=== PATIENT | male | born 1975 | race Caucasian/White ===

== ENCOUNTER 2020-04-25 10:59 | Emergency (ER) | payer MEDICAID ==
[2020-04-25 11:10] VITALS: BP 149/99
[2020-04-25] MEDS ORDERED: TETANUS/DIPHTHERIA/PERTUSSIS 0.5 ML SYRINGE IM ONE (11:23)
[2020-04-25] MEDS ORDERED: LIDOCAINE 2%-EPI 1:100000 20 ML MDV SUBQ STA (11:23)
[2020-04-25] MEDS ORDERED: SULFAMETH/TRIMETH DS 800/160 MG TABLET PO STA (11:51)
[2020-04-25] MEDS ORDERED: cephALEXin 250 MG CAPSULE PO STA (11:51)
--- NOTE | 2020-04-25 11:53 | ED Physician Documentation ---
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 He states that he noticed redness and swelling to the left lower extremity over the past few days. Increasing today. Worse with palpation, better with rest. Unknown last tetanus. Review of Systems Constitutional: denies: Fever Respiratory: denies: Cough GI: denies: Abdominal Pain, Nausea, Vomiting, Diarrhea : denies: Dysuria Skin: denies: Rash Musculoskeletal: denies: Neck pain, Back pain Neurologic: denies: Headache PD PAST MEDICAL HISTORY - Past Medical History Past Medical History: No - Present Medications Home Medications: Ambulatory Orders Medication Instructions Recorded Confirmed Cephalexin [Keflex] 500 mg PO Q6H #28 capsule 04/25/20 Sulfamethox/Trimeth 800/160 1 each PO BID #14 tablet 04/25/20 [Bactrim Ds 800/160] - Allergies Allergies/Adverse Reactions: Allergies Allergy/AdvReac Type Severity Reaction Status Date / Time No Known Drug Allergies Allergy Verified 04/25/20 11:10 - Social History Does the pt smoke?: No Smoking Status: Never smoker - Immunizations Immunizations are current?: No Immunizations: TDAP >10years/unknown PD ED PE NORMAL - Vitals Vital signs reviewed: Yes - General General: Alert and oriented X 3, No acute distress - HEENT HEENT: Moist mucous membranes - Neck Neck: Supple, no meningeal sign - Respiratory Respiratory: No respiratory distress - Derm Derm: Warm and dry - Extremities Extremities: Other (2 x 2 cm abscess to the lateral aspect of the left knee. Minimal surrounding erythema. There is a second open sore approximately midway down the tibia that has 2 cm of surrounding cellulitis as well. No drainage.) - Neuro Neuro: Alert and oriented X 3 Results - Vitals Vitals: Vital Signs - 24 hr 04/25/20 11:08 Temperature 36.8 C Heart Rate 108 H Respiratory 16 Rate Blood Pressure 149/99 H O2 Saturation 100 Oxygen O2 Source Room air Procedures - Abscess I&D (location) Left knee Preparation: Chlorhexadine, Lidocaine 2 %, With epi Incision: Incised with scalpel, Purulent drainage, Culture obtained Other: Pt tolerated well, Dressing applied, Antibiotic prescribed PD MEDICAL DECISION MAKING - ED course Complexity details: considered differential, d/w patient ED course: Patient with a left knee abscess and cellulitis. No evidence of septic joint. We will place on antibiotics for home and have him follow-up with his doctor for further care and a wound check. Patient and family counseled regarding signs and symptoms for which I believe and urgent re-evaluation would be necessary. Patient with good understanding of and agreement to plan and is comfortable going home at this time This document was made in part using voice recognition software. While efforts are made to proofread this document, sound alike and grammatical errors may occur. Departure - Departure Disposition: 01 Home, Self Care Clinical Impression: Abscess Condition: Good Instructions: ED Abscess IandD Follow-Up: your,doctor in 3 days for wound check [Other] Prescriptions: Sulfamethox/Trimeth 800/160 [Bactrim Ds 800/160] 1 each PO BID #14 tablet Cephalexin [Keflex] 500 mg PO Q6H #28 capsule Comments: Take all antibiotics until gone. Return if you worsen. Follow-up with your doctor for further care and a wound check within 3 days.
== END 2020-04-25 12:02 | disposition home or self-care (01) ==
LOC: ED 10:59
DX: L02.416 Cutaneous abscess of left lower limb (principal); L03.116 Cellulitis of left lower limb
CPT/HCPCS: 10060; 87070; 87181; 87205; 90471; 90715; 99283; 99284; A9270

== ENCOUNTER 2021-08-18 11:09 | Emergency (ER) | payer MEDICAID ==
[2021-08-18 11:17] VITALS: BP 169/87
--- NOTE | 2021-08-18 11:21 | ED Physician Documentation ---
PD HPI HEENT - Stated complaint Stated Complaint: TOOTH PX - Chief complaint Chief Complaint: General - History obtained from History obtained from: Patient - History of Present Illness Timing - onset: How many days ago (3) Timing - duration: Days (3) Timing - details: Abrupt onset, Still present Location: Tooth (has had pain and swelling buccal side gums lower front teeth for 3 days with sloughing of some tissue this morning.) Associated symptoms: No: Fever, Congestion, Rhinorrhea, Swollen nodes, Cough Similar symptoms before: Has not had sx before (poor dentition but not gingival issue like this.) Recently seen: Not recently seen Review of Systems Constitutional: denies: Fever, Chills Nose: denies: Rhinorrhea / runny nose, Congestion Throat: denies: Sore throat Respiratory: denies: Cough PD PAST MEDICAL HISTORY - Past Medical History Past Medical History: Yes Cardiovascular: Hypertension Respiratory: None Neuro: Seizure disorder Endocrine/Autoimmune: None GI: None : Renal insuffiency, Other HEENT: None Psych: None Musculoskeletal: None Derm: None - Past Surgical History Past Surgical History: No - Present Medications Home Medications: Ambulatory Orders Medication Instructions Recorded Confirmed Chlorhexidine Gluconate [Peridex] 15 ml MM TID #118 ml 08/18/21 Clindamycin [Cleocin] 300 mg PO QID 7 Days #28 cap 08/18/21 HYDROcod/ACETAM 5/325 [[place] 5/325] 1 ea PO Q6H PRN #14 tablet 08/18/21 Naproxen 250 mg PO TID 7 Days #20 tablet 08/18/21 - Allergies Allergies/Adverse Reactions: Allergies Allergy/AdvReac Type Severity Reaction Status Date / Time No Known Drug Allergies Allergy Verified 08/18/21 11:14 - Living Situation Living Arrangement: reports: At home - Social History Does the pt smoke?: Yes Smoking Status: Current every day smoker Does the pt drink ETOH?: Yes ETOH Use: Liquor Does the pt have substance abuse?: No - Immunizations Immunizations are current?: No Immunizations: Other immun current PD ED PE NORMAL - Vitals Vital signs reviewed: Yes - General General: Alert and oriented X 3, Well developed/nourished, Other (appears in pain from mouth) - HEENT HEENT: No: Dentition benign (multiple caries and decay/enamel loss. the buccal gingiva lower anterior frontal teeth shows gingival inflammation/redness and there is focal erosion of gum exposing base/roots of those 2 teeth. ) - Neck Neck: Supple, no meningeal sign, No adenopathy - Cardiac Cardiac: RRR, No murmur - Respiratory Respiratory: Clear bilaterally - Derm Derm: Normal color, Warm and dry Results - Vitals Vitals: Oxygen O2 Source Room air PD MEDICAL DECISION MAKING - ED course Complexity details: considered differential (Appears to be acute ulcerative gingivitis. Per up-to-date reference, will treat with clindamycin and martín-Dex. We will have him follow-up with oral surgery this coming week to call tomorrow for an appointment. He likely will need gingival graft over the area. ), d/w patient Departure - Departure Disposition: 01 Home, Self Care Clinical Impression: Acute ulcerative gingivitis Condition: Stable Record reviewed to determine appropriate education?: Yes Follow-Up: Ashkan Coe DDS [Provider Admit Priv/Credential] - Prescriptions: Clindamycin [Cleocin] 300 mg PO QID 7 Days #28 cap Naproxen 250 mg PO TID 7 Days #20 tablet HYDROcod/ACETAM 5/325 [[place] 5/325] 1 ea PO Q6H PRN #14 tablet PRN Reason: Pain Chlorhexidine Gluconate [Peridex] 15 ml MM TID #118 ml Comments: Rinse with regular mouthwash or at least regular water 3-4 times daily followed then by Peridex (chlorhexidine) oral antiseptic and be sure to swish around the gumline and around the teeth. You can then spit out or swallow. Clindamycin antibiotic 4 times daily for the next week. Naproxen anti-inflammatory 3 times daily with food. You going to take the clindamycin with food as well so as to not bother your stomach. Add Tylenol or hydrocodone as needed for pain in addition. Follow-up with dental clinic or more preferable would be oral surgery. I gave reference number for Dr. Coe who is an oral surgeon in [place]. Call their office tomorrow morning for a follow-up appointment to this visit. I transmitted your prescriptions to [facility] pharmacy in [place]. I am prescribing a short course of narcotic pain medication for you. These are potentially dangerous and addictive medications that should be used carefully. These medications may constipate you. Take an dvii-kih-nanfrid stool softener such as docusate twice daily with plenty of water while taking these medicatio ns. If you go 24 hours without a bowel movement, take ozbq-gvt-hjmpftu MiraLAX, per package instructions. Do not drink or drive while taking these medications. If you received narcotic or sedating medications while in the emergency department do not drive for 24 hours. Store this medication in a safe, secure place and out of reach of children. It is a violation of federal law to give or sell this medication to another person or to use in a manner other than prescribed. The ED will not refill narcotic prescriptions, including prescriptions lost or stolen. You can dispose of unwanted medications at the [facility]'s office or at several pharmacies such as [facility]. Discharge Date/Time: 08/18/21 12:00
[2021-08-18] MEDS ORDERED: HYDROcod/ACETAM 5/325 MG TABLET PO STA (11:38)
[2021-08-18] MEDS ORDERED: NAPROXEN 250 MG TABLET PO STA (11:38)
[2021-08-18] MEDS ORDERED: CLINDAMYCIN 150 MG CAPSULE PO STA (11:38)
== END 2021-08-18 12:00 | disposition home or self-care (01) ==
LOC: ED 11:09
DX: K05.00 Acute gingivitis, plaque induced (principal); F17.200 Nicotine dependence, unspecified, uncomplicated
CPT/HCPCS: 99283; 99284; A9270

== ENCOUNTER 2022-04-22 10:50 | Emergency (ER) | payer MEDICAID ==
--- NOTE | 2022-04-22 11:28 | XRAY Report ---
PROCEDURE: Shoulder 3 View LT INDICATIONS: pain TECHNIQUE: 3 views of the shoulder were acquired. COMPARISON: None. FINDINGS: Bones: No fractures or dislocations. No suspicious bony lesions. Visualized ribs appear intact. Soft tissues: No suspicious soft tissue calcifications. IMPRESSION: No evidence acute bony abnormality of the left shoulder. If clinical suspicion and/or symptoms persist, further assessment with repeat plain films or advanced imaging (e.g., CT, MRI, or bone scan) may be helpful for further assessment. Reviewed by: Vikram Almanza MD on 04/22/2022 11:27 AM PDT Approved by: Vikram Almanza MD on 04/22/2022 11:27 AM PDT Station ID: [id number]
--- NOTE | 2022-04-22 12:23 | ED Physician Documentation ---
History of Present Illness - Stated complaint Stated Complaint: SHOULDER PX/NECK PX - Chief complaint Chief Complaint: Trauma Ext - History obtained from History obtained from: Patient - Additonal information Additional information: 46-year-old gentleman with history of nephrotic syndrome presents with 2 complaints, the first being 1 month worth of left shoulder pain with numbness in the left arm. Pain is not too severe but does keep him from sleeping at night. Secondly over the last 5 days or so he developed nasal congestion and ear pain especially on the left with fatigue but no fevers or cough. That is improving without specific intervention. Last but not least in passing he mentions that he feels all of his skin is tight and sensitive. It has been years since he has had his renal function checked. Review of Systems Constitutional: reports: Fatigue. denies: Fever, Chills Ears: reports: Ear pain Nose: reports: Rhinorrhea / runny nose, Congestion PD PAST MEDICAL HISTORY - Past Medical History Cardiovascular: Hypertension Respiratory: None Neuro: Seizure disorder Endocrine/Autoimmune: None GI: None : Renal insuffiency, Other HEENT: None Psych: None Musculoskeletal: None Derm: None - Past Surgical History Past Surgical History: No - Present Medications Home Medications: Ambulatory Orders Medication Instructions Recorded Confirmed Chlorhexidine Gluconate [Peridex] 15 ml MM TID #118 ml 08/18/21 Clindamycin [Cleocin] 300 mg PO QID 7 Days #28 cap 08/18/21 HYDROcod/ACETAM 5/325 [[place] 5/325] 1 ea PO Q6H PRN #14 tablet 08/18/21 Naproxen 250 mg PO TID 7 Days #20 tablet 08/18/21 HYDROcod/ACETAM 5/325 [[place] 5/325] 1 - 2 tab PO Q6H PRN #15 tablet 04/22/22 predniSONE [Deltasone] 20 mg PO [id number] #21 tab 04/22/22 - Allergies Allergies/Adverse Reactions: Allergies Allergy/AdvReac Type Severity Reaction Status Date / Time No Known Drug Allergies Allergy Verified 04/22/22 11:02 - Social History Does the pt smoke?: Yes Smoking Status: Current every day smoker Does the pt drink ETOH?: Yes Does the pt have substance abuse?: No - Immunizations Immunizations are current?: No Immunizations: Other immun current PD ED PE NORMAL - Vitals Vital signs reviewed: Yes - General General: Alert and oriented X 3, No acute distress - HEENT HEENT: Other (Serous otitis on the left, no sinus tenderness, oropharynx normal.) - Neck Neck: Supple, no meningeal sign, No bony TTP - Cardiac Cardiac: RRR, No murmur - Respiratory Respiratory: No respiratory distress, Clear bilaterally - Abdomen Abdomen: Non tender - Back Back: No CVA TTP, No spinal TTP - Derm Derm: Normal color, Warm and dry - Extremities Extremities: Other (Full range of motion of the left shoulder which appears relatively painless. No midline spinal tenderness. 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, thumb extension, interosseous strength, and flexion and extension at the wrist.) - Neuro Neuro: Alert and oriented X 3, No sensory deficit, Normal speech Eye Opening: Spontaneous Motor: Obeys Commands Verbal: Oriented GCS Score: 15 Results - Vitals Vitals: Vital Signs - 24 hr 04/22/22 04/22/22 10:58 12:53 Temperature 36.3 C L Heart Rate 101 H 81 Respiratory 18 14 Rate Blood Pressure 142/78 H 133/85 H O2 Saturation 99 99 Oxygen O2 Source Room air - Labs Labs: Laboratory Tests 04/22/22 12:27 Sodium 142 Potassium 4.3 Chloride 103 Carbon Dioxide 29 Anion Gap 10.0 BUN 17 Creatinine 0.9 Estimated GFR (MDRD) 92 Glucose 122 H Calcium 9.5 - Rads (name of study) Three-view x-ray of the left shoulder is unremarkable. Radiology: EMP read contemporaneously PD MEDICAL DECISION MAKING - ED course ED course: 46-year-old gentleman with symptoms of left arm pain and shoulder pain but with neuropathy in areas of that arm. The only finding on exam is 1 area of partial numbness, strength is intact. This is most consistent with a mild cervical radiculopathy and he was advised as such. He had an ancillary complaints of URI, but that seems to be getting better so conservative management was advised, and finally he felt like his skin was tight. Given his history of nephrotic syndrome a BMP was checked despite no findings of anasarca and his renal function is excellent. Departure - Departure Disposition: 01 Home, Self Care Clinical Impression: Viral syndrome, Cervical radiculopathy Condition: Good Record reviewed to determine appropriate education?: Yes Instructions: ED Cervical Radiculopathy Follow-Up: Neda Harry ARNP [Provider Admit Priv/Credential] - Prescriptions: predniSONE [Deltasone] 20 mg PO [id number] #21 tab HYDROcod/ACETAM 5/325 [[place] 5/325] 1 - 2 tab PO Q6H PRN #15 tablet PRN Reason: Pain Comments: I sent your prescriptions electronically to [facility] in [place]. We did check labs today and your renal function is excellent, your creatinine is 0.9 and your GFR is 92 both normal. Your blood sugar was borderline high at 122 and should be monitored by your primary care physician. On-call for ED follow-up this for next week is nurse practitioner Kamryn who's number is on this form. Call her office today for an appointment. Return for new or worsening symptoms. I am prescribing a short course of narcotic pain medication for you. These are potentially dangerous and addictive medications that should be used carefully. These medications may constipate you. Take an foxl-rqj-trnwbwy stool softener (docusate) twice daily with plenty of water while taking these medications. If you go 24 hours without a bowel movement, take dacw-uve-vyjckla miralax, per package instructions. Do not drink or drive while taking these medications. If you received narcotic or sedating medications while in the emergency department, do not drive for 24 hours. Store this medication in a safe, secure place and out of reach of children. It is a violation of federal law to give or sell this medication to another person or to use in a manner other than prescribed. The ED will not refill narcotic prescriptions, including prescriptions lost or stolen. To dispose of unwanted medications: 1. [facility] at [address] in [place] has a medication drop box. They accept prescription medications (in pill form) Wednesday through Wednesday 9:00 a.m. to 5:00 p.m. 2. [facility] accepts prescription medications (in pill form only) for disposal year round. Call for more information. 3. Contact the [facility] for the next [facility] sponsored prescription drug collection event. , [phone], or [phone]; Note that many narcotic pain relievers also contain Tylenol/acetaminophen. Please ensure that your total dose of acetaminophen from all sources does not exceed 3 g (3000 mg) per day. Discharge Date/Time: 04/22/22 12:53
[2022-04-22 12:41] LABS: CALCIUM 9.5 mg/dL (8.5-10.3); CREATININE 0.9 mg/dL (0.6-1.2); POTASSIUM 4.3 mmol/L (3.5-5.0)
[2022-04-22 12:54] VITALS: BP 133/85
== END 2022-04-22 12:53 | disposition home or self-care (01) ==
LOC: ED 10:50
DX: M54.12 Radiculopathy, cervical region (principal); B34.9 Viral infection, unspecified; N05.9 Unspecified nephritic syndrome with unspecified morphologic changes; F17.200 Nicotine dependence, unspecified, uncomplicated
CPT/HCPCS: 36415; 80048; 99282; 99284

== ENCOUNTER 2022-05-07 00:21 | Emergency (ER) | payer MEDICAID ==
--- NOTE | 2022-05-07 02:33 | ED Physician Documentation ---
History of Present Illness - Stated complaint Stated Complaint: WEAKNESS/SORE THROAT/BODY PX - Chief complaint Chief Complaint: Neuro - History obtained from History obtained from: Patient - History of Present Illness Timing: Other (multiple c/o, various time frames (see narrative below)) - Additonal information Additional information: multiple c/o. c/o left shoulder pain x approximately 1 month, denies injury. He was T+R from this ED 04/22/22 for same, rx vicodin and prednisone. He says the prednisone seemed to help but that the pain returned within a few days of finishing the prednisone. c/o fatigue x months. c/o sore throat and left ear pain x 1 week. He also says he was recently told by his girlfriend that she has tested positive for syphilis (he says this was tested with blood test(s)), and that she advised him to get tested/treated due to exposure. He denies rash/lesions (specifically on genitals, hands). Review of Systems Constitutional: denies: Fever, Chills, Sweats Ears: reports: Ear pain Throat: reports: Sore throat Cardiac: reports: Reviewed and negative Respiratory: reports: Reviewed and negative Musculoskeletal: reports: Joint pain (left shoulder). denies: Neck pain, Extremity pain, Extremity swelling, Joint swelling Neurologic: denies: Focal weakness, Numbness, Headache PD PAST MEDICAL HISTORY - Past Medical History Cardiovascular: Hypertension Respiratory: None Neuro: Seizure disorder Endocrine/Autoimmune: None GI: None : Renal insuffiency, Other HEENT: None Psych: None Musculoskeletal: None Derm: None - Past Surgical History Past Surgical History: No - Present Medications Home Medications: Ambulatory Orders Medication Instructions Recorded Confirmed Doxycycline [Vibramycin] 100 mg PO BID #27 tablet 05/07/22 - Allergies Allergies/Adverse Reactions: Allergies Allergy/AdvReac Type Severity Reaction Status Date / Time No Known Drug Allergies Allergy Verified 05/07/22 00:31 - Social History Does the pt smoke?: Yes Smoking Status: Current every day smoker Does the pt drink ETOH?: Yes Does the pt have substance abuse?: No - Immunizations Immunizations are current?: No Immunizations: Other immun current PD ED PE NORMAL - Vitals Vital signs reviewed: Yes - General General: Alert and oriented X 3, No acute distress, Well developed/nourished - HEENT HEENT: Ears normal, Moist mucous membranes, Pharynx benign - Respiratory Respiratory: No respiratory distress, Clear bilaterally - Derm Derm: Normal color, No rash - Extremities Extremities: No tenderness to palpate (no TTP left shoulder; FROM without pain), Normal ROM s pain Results - Vitals Vitals: Vital Signs - 24 hr 05/07/22 05/07/22 00:25 03:47 Temperature 37.2 C Heart Rate 102 H 98 Respiratory 16 18 Rate Blood Pressure 147/72 H 138/72 H O2 Saturation 99 98 Oxygen O2 Source Room air PD MEDICAL DECISION MAKING - ED course Complexity details: reviewed old records, considered differential, d/w patient ED course: multiple c/o over various time frames. His posterior o/p has no erythema, exudate, swelling and left ear exam including left TM is normal . No emergent testing (such as rapid strep) is indicated at this time; suspect left serous otitis based on his description of left ear pain, sensation of fullness and decreased hearing left ear. His left shoulder exam is unremarkable. He had left shoulder xrays on recent ED visit , unremarkable results. Emergent testing is not indicated at this time for this recurrent problem. Regarding his fatigue c/o, which has been for months, he does not appear pale and his conjunctiva are pink; doubt anemia. No elements of H+P to otherwise (aside from fatigue) support hypothyroidism. Again, emergent testing for this subacute c/o is not indicated at this time. He seems to be chiefly concerned regarding recent exposure to partner diagnosed with syphilis. He is certain this was the diagnosis he was told by his girlfriend (I asked if perhaps it was chlamydia, gonorrhea, herpes (naming more common STDs), and he is certain she said the diagnosis was syphilis). RPR sent and will treat empirically. I explained that the treatment of choice is IM penicillin, but he does not want any "shots" (per patient) of medication and would prefer PO option. Doxycycline is reasonable option and this is given in ED with rx sent to his pharmacy of choice. Departure - Departure Disposition: 01 Home, Self Care Clinical Impression: Exposure to STD Condition: Good Instructions: STD Poss Prescriptions: Doxycycline [Vibramycin] 100 mg PO BID #27 tablet Comments: You have indicated that you had a recent exposure to someone who tested positive for syphillus. A blood tests is pending, but you are being treated empirically (in other words, will assume you have this illness due to the confidence of exposure). You were given an antibiotic (doxycycline) and a prescription for a 2-week course of this antibiotic has been electronically submitted to [facility] pharmacy in [place]. Discharge Date/Time: 05/07/22 03:47
[2022-05-07] MEDS ORDERED: DOXYCYCLINE 100 MG TABLET PO STA (03:14)
[2022-05-07 03:48] VITALS: BP 138/72
== END 2022-05-07 03:47 | disposition home or self-care (01) ==
LOC: ED 00:21
DX: Z20.2 Contact with and (suspected) exposure to infections with a predominantly sexual mode of transmission (principal); I10 Essential (primary) hypertension; F17.200 Nicotine dependence, unspecified, uncomplicated
CPT/HCPCS: 36415; 86592; 99283; A9270

== ENCOUNTER 2022-10-10 23:42 | Emergency (ER) | payer MEDICAID ==
[2022-10-11 00:03] VITALS: BP 148/108
== END 2022-10-11 01:21 | disposition left against medical advice (07) ==
LOC: ED 23:42
DX: Z53.21 Procedure and treatment not carried out due to patient leaving prior to being seen by health care provider (principal)

== ENCOUNTER 2023-09-25 13:11 | Emergency (ER) | payer MEDICAID ==
[2023-09-25 13:26] VITALS: BP 146/87; O2SAT 98
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
[2023-09-25] MEDS: oxyCODONE 5 MG TABLET PO STA (13:38)
[2023-09-25] MEDS: TETANUS/DIPHTHERIA/PERTUSSIS 0.5 ML SYRINGE IM ONE (13:39)
[2023-09-25] MEDS: BACITRACIN ZINC OINT 1 PACKET TOP STA (13:41)
== END 2023-09-25 14:15 | disposition home or self-care (01) ==
LOC: ED 13:11
DX: T22.011A Burn of unspecified degree of right forearm, initial encounter (principal); T24.031A Burn of unspecified degree of right lower leg, initial encounter; X08.8XXA Exposure to other specified smoke, fire and flames, initial encounter; I10 Essential (primary) hypertension; F17.200 Nicotine dependence, unspecified, uncomplicated; Z23 Encounter for immunization
CPT/HCPCS: 16000; 16020; 90471; 90715; 99283; A9270

== ENCOUNTER 2023-10-11 17:52 | Emergency (ER) | payer MEDICAID ==
[2023-10-11 18:09] VITALS: O2SAT 98
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
[2023-10-11] MEDS: cephALEXin 250 MG CAPSULE PO STA (18:24)
[2023-10-11] MEDS: SULFAMETH/TRIMETH DS 800/160 MG TABLET PO STA (18:24)
[2023-10-11 18:28] VITALS: BP 138/84
== END 2023-10-11 18:26 | disposition home or self-care (01) ==
LOC: ED 17:52
DX: L03.116 Cellulitis of left lower limb (principal); L03.115 Cellulitis of right lower limb; I10 Essential (primary) hypertension; F17.200 Nicotine dependence, unspecified, uncomplicated
CPT/HCPCS: 99283; A9270